=== PATIENT | male | born 1990 | race Caucasian/White ===

== ENCOUNTER 2020-12-14 16:27 | Emergency (ER) | payer OTHER ==
[~2020-12-14] VITALS: Ht 170.2 cm; Wt 73.6 kg
[2020-12-14 17:39] LABS: BILIRUBIN,URINE NEG (NEG); CLARITY,URINE CLEAR; COLOR,URINE YELLOW; GLUCOSE,URINE NEG (NEG); NITRITE,URINE NEG (NEG); UROBILINOGEN,URINE 0.2 mg/dL (0.2 mg/dL)
[2020-12-14 17:43] LABS: BACTERIA,URINE 0 /HPF (0-FEW)
--- NOTE | 2020-12-14 17:45 | RAD ---
INDICATION: Testicular pain. COMPARISON: None available TECHNIQUE: Grayscale, color and spectral doppler ultrasound images obtained of the scrotum. FINDINGS: Right Testicle: 42 x 28 x 21 mm. Vascular flow is identified. Left Testicle: 37 x 28 x 19 mm. Vascular flow is identified. There is some calcifications within the left scrotal region with associated shadowing. Hypoechoic structure of the right epididymis measuring 8 x 7 mm. IMPRESSION: * Hypoechoic region within the right epididymis. Differential considerations would include both foca l edema from epididymitis as well as a small epididymal mass such as adenomatoid tumor. Follow-up cou ld be obtained to ensure no growth. * Vascular flow seen to the bilateral testicles. * Electronically signed by: West Almaguer MD (12/14/2020 5:42 PM) [id number]
[2020-12-14] MEDS ORDERED: IOHEXOL 300 MG/ML 75 ML VIAL. IV ONE (18:45)
--- NOTE | 2020-12-14 18:45 | PHYS DOC ---
Past History Past Medical History: No Pertinent History (OLESYASHRADDHAJENNIFER DO) Alcohol Use: Occasionally (SANDYJENNIFER DO) General Adult EDM: Chief Complaint: TESTICULAR PAIN OR INJURY HPI: HPI: Patient is a [age] year old [sex] who presents with [] (OLESYASHRADDHAJENNIFER DO) Review of Systems: Review of Systems: Constitutional: Denies fever or chills Eyes: Denies change in visual acuity HENT: Denies nasal congestion or sore throat Respiratory: Denies cough or shortness of breath Cardiovascular: Denies chest pain or edema GI: Denies abdominal pain, nausea, vomiting, bloody stools or diarrhea : Denies dysuria Musculoskeletal: Denies back pain or joint pain Integument: Denies rash Neurologic: Denies headache, focal weakness or sensory changes Endocrine: Denies polyuria or polydipsia Lymphatic: Denies swollen glands Psychiatric: Denies depression or anxiety (SANDYJENNIFER DO) Allergies: Allergies: Allergies Coded Allergies Type Severity Reaction Last Updated Verified No Known Drug Allergies 12/14/20 No (SANDYJENNIFER DO) Physical Exam: PE: Constitutional: Well developed, well nourished, no acute distress, non-toxic appearance. [] HENT: Normocephalic, atraumatic, bilateral external ears normal, oropharynx moist, no oral exudates, nose normal. [] Eyes: PERRLA, EOMI, conjunctiva normal, no discharge. [] Neck: Normal range of motion, no tenderness, supple, no stridor. [] Cardiovascular:Heart rate regular rhythm, no murmur [] Lungs & Thorax: Bilateral breath sounds clear to auscultation [] Abdomen: Bowel sounds normal, soft, no tenderness, no masses, no pulsatile masses. [] Skin: Warm, dry, no erythema, no rash. [] Back: No tenderness, no CVA tenderness. [] Extremities: No tenderness, no cyanosis, no clubbing, ROM intact, no edema. [] Neurologic: Alert and oriented X 3, normal motor function, normal sensory function, no focal deficits noted. [] Psychologic: Affect normal, judgement normal, mood normal. [] (OLESYASHRADDHAJENNIFER DO) Current Patient Data: Labs: Laboratory Tests Test 12/14/20 16:55 Urine Collection Type Unknown Urine Color Yellow Urine Clarity Clear Urine pH 6.0 Urine Specific Terry 1.025 Urine Protein Neg (NEG-TRACE) Urine Glucose (UA) Neg mg/dL (NEG) Urine Ketones (Stick) >=160 mg/dL (NEG) Urine Blood Neg (NEG) Urine Nitrite Neg (NEG) Urine Bilirubin Neg (NEG) Urine Urobilinogen Dipstick 0.2 mg/dL (0.2 mg/dL) Urine Leukocyte Esterase Neg (NEG) Urine RBC 1-2 /HPF (0-2) Urine WBC 1-4 /HPF (0-4) Urine Squamous Epithelial Cells None /LPF Urine Bacteria 0 /HPF (0-FEW) Urine Mucus Slight /LPF Vital Signs: Vital Signs Date Time Temp Pulse Resp B/P (MAP) Pulse Ox O2 Delivery O2 Flow Rate FiO2 12/14/20 18:15 69 16 128/73 (91) 99 12/14/20 17:30 98.2 Room Air (JENNIFER DELGADO DO) EKG: EKG: [] (JENNIFER DELGADO DO) Radiology/Procedures: Radiology/Procedures: [] (JENNIFER DELGADO DO) Heart Score: Risk Factors: Risk Factors: DM, Current or recent (<one month) smoker, HTN, HLP, family history of CAD, obesity. Risk Scores: Score 0 - 3: 2.5% MACE over next 6 weeks - Discharge Home Score 4 - 6: 20.3% MACE over next 6 weeks - Admit for Clinical Observation Score 7 - 10: 72.7% MACE over next 6 weeks - Early Invasive Strategies (JENNIFER DELGADO DO) Course & Med Decision Making: Course & Med Decision Making Pertinent Labs and Imaging studies reviewed. (See chart for details) [] (JENNIFER DELGADO DO) Course & Med Decision Making Discussed all findings with patient including CT scan and ultrasound. Discussed the diagnosis of epididymitis and need for appropriate antibiotics. Patient states that he is already on Levaquin and would continue that for the epididymitis and weight to see the results for his gonorrhea and chlamydia before starting any other antibiotics. Discussed the risks of further infection, pain, hospitalization and worst case scenario sepsis and/or . Patient stated he is sure that he does not have any sexually transmitted diseases and would continue his current antibiotic and was ready to be discharged home. Advised to follow-up first thing in the morning with his primary care physician to discuss ED visit and set up a follow-up. Advised that his gonorrhea and Chlamydia tests would result in 24 to 48 hours and he would be contacted with results and need for treatment. Advised to come back to the ED with new or concerning symptoms. Patient grateful, verbalized understanding and agreed with plan of discharge. (CARLOTA GUZMÁN MD) Dragon Disclaimer: Dragon Disclaimer: This electronic medical record was generated, in whole or in part, using a voice recognition dictation system. (JENNIFER DELGADO DO) Departure Departure: Referrals: NON,STAFF (PCP) JENNIFER DELGADO DO Dec 14, 2020 18:45 CARLOTA GUZMÁN MD Dec 14, 2020 21:27
[2020-12-14 19:44] LABS: BASO % 0 % (0-3); EOS # 0.1 x10^3/uL (0.0-0.7); EOS % 1 % (0-3); HEMATOCRIT 42.4 % (39.0-53.0); HEMOGLOBIN 14.1 g/dL (13.0-17.5); LYMPH # 1.9 x10^3/uL (1.0-4.8); LYMPH % 19 % (24-48); MEAN CORPUSCULAR HEMOGLOBIN 31 pg (25-35); MEAN CORPUSCULAR HGB CONC 33 g/dL (31-37); MEAN CORPUSCULAR VOLUME 94 fL (79-100); MONO % 10 % (0-9); NEUT # 7.1 x10^3uL (1.8-7.7); NEUT % 70 % (31-73); PLATELET COUNT 302 x10^3/uL (140-400); RED BLOOD COUNT 4.51 x10^6/uL (4.30-5.70); RED CELL DISTRIBUTION WIDTH 13.3 % (11.5-14.5); WHITE BLOOD COUNT 10.1 x10^3/uL (4.0-11.0)
[2020-12-14 19:55] LABS: CALCIUM 9.3 mg/dL (8.5-10.1); CREATININE 0.9 mg/dL (0.7-1.3); GFR 97.8; POTASSIUM 3.7 mmol/L (3.5-5.1)
--- NOTE | 2020-12-14 20:06 | RAD ---
Exam: CT of abdomen and pelvis with contrast INDICATION: Right inguinal pain, radiating into testicle TECHNIQUE: Sequential axial images through the abdomen and pelvis obtained following the administrati on of 75 mL of Omni 300 IV contrast. Sagittal and coronal reformatted images were reconstructed from the axial data and reviewed. Comparisons: Ultrasound same day FINDINGS: Heart size is normal. No pericardial. Visualized lung bases are clear. No pleural effusion. Liver, spleen, pancreas, gallbladder and adrenals are unremarkable. Perinephric inflammation or hydronephrosis. No renal or ureteral calculi are identified. Bladder is distended and appears thin-walled. Prostate is not enlarged. Large and small bowel are unremarkable. Appendix is nonidentified. No free intra-abdominal air or flu id. No obstruction. Abdominal aorta has a normal course and caliber. Abdominal vasculature is patent. No enlarged intra-abdominal lymph nodes are identified. No suspicious osseous lesions or acute fractures. IMPRESSION: No acute process identified within the abdomen or pelvis. Exposure: One or more of the following in the visualized dose reduction techniques were utilized for this examination: 1. Automated exposure control 2. Adjustment of the MA and/or KV according to patient size 3. Use of iterative of reconstructive technique Electronically signed by: Anup Durbin MD (12/14/2020 8:04 PM) [facility]
[2020-12-14 20:35] VITALS: BP 126/70
== END 2020-12-14 20:33 | disposition home or self-care (01) ==
LOC: ER 16:27
DX: N50.811 Right testicular pain (principal)
CPT/HCPCS: 36415; 74177; 76870; 80048; 81001; 85025; 87491; 87591; 99285; Q9967